=== PATIENT | male | born 1930 | race Caucasian/White ===

== ENCOUNTER 2016-10-07 07:23 | Day surgery (SDC) | payer BC ==
[2016-10-04 12:06] LABS: BASOPHILS 0.3 %; BASOPHILS ABSOLUTE 0.02 10/3/uL (0.0-0.16); EOSINOPHILS 1.7 %; EOSINOPHILS ABSOLUTE 0.13 10/3/uL (0.0-0.53); HEMATOCRIT 39.2 % (40.0-51.0); HEMOGLOBIN 12.8 g/dL (13.6-17.8); IMMATURE GRANULOCYTES 0.1 %; IMMATURE GRANULOCYTES ABSOLUTE 0.01 10/3/uL (0.0-0.11); LYMPHOCYTES 19.6 %; LYMPHOCYTES ABSOLUTE 1.54 10/3/uL (0.67-4.30); MANUAL DIFF NO %; MEAN CORPUS HGB CONC 32.7 g/dL (32.0-36.0); MEAN PLATELET VOLUME 12.4 fL (9.2-13.0); MONOCYTES 6.6 %; MONOCYTES ABSOLUTE 0.52 10/3/uL (0.21-1.20); NEUTROPHILS 71.7 %; NEUTROPHILS ABSOLUTE 5.65 10/3/uL (2.02-8.40); PLATELET COUNT 180 10/3/uL (150-400); RBC DISTRIBUTION WIDTH 13.9 % (12.0-16.0); RED CELL COUNT 4.26 10/6/uL (4.7-6.1); WHITE BLOOD CELLS 7.9 10/3/uL (4.5-10.5)
[2016-10-04 12:22] LABS: ALBUMIN 3.7 G/DL (3.5-5.0); ALKALINE PHOSPHATASE 91 U/L (45-117); CALCIUM, SERUM 8.9 MG/DL (8.5-10.4); CHLORIDE, SERUM 105 MMOL/L (96-112); CREATININE 1.17 MG/DL (0.70-1.30); GFR AFRICAN AMERICAN 66 ML/MIN (>=60); GFR NON AFRICAN AMERICAN 57 ML/MIN (>=60); GLOBULIN 3.6 G/DL (2.5-4.1); GLUCOSE, SERUM 131 MG/DL (60-99); POTASSIUM, SERUM 4.4 MMOL/L (3.5-5.3); SGOT(AST) 15 U/L (5-40); SGPT(ALT) 12 U/L (5-65); SODIUM, SERUM 142 MMOL/L (135-148); TOTAL BILIRUBIN 0.5 MG/DL (0-1.2); TOTAL PROTEIN 7.3 G/DL (6.0-8.5)
[2016-10-04 12:23] LABS: BUN (BLOOD UREA NITROGEN) 23 MG/DL (6-23); CO2 (CARBON DIOXIDE) 29 MMOL/L (24-34)
--- NOTE | ~2016-10-07 | OP ---
Record Of Operation [facility] [address] [place]. [address] NAME: CHRIS BROWN : 34 STATUS : [facility]#: [id number] AGE: 86 ADM/REG DATE : 10/07/16 MR#: [id number] REPORT SERV DATE: 10/09/16 DICTATED BY: PHILIPPE KEENAN DATE: 10/09/16 REPORT STATUS : Draft TRANSCRIBED BY: MODL DATE: 10/09/16 DATE OF PROCEDURE: 10/07/2016 PREOPERATIVE DIAGNOSES: 1. Chronic nausea and vomiting. 2. Abnormal appendix on CT scan consistent with a chronic tip appendicitis. POSTOPERATIVE DIAGNOSES: 1. Chronic nausea and vomiting. 2. Abnormal appendix on CT scan consistent with a chronic tip appendicitis. PROCEDURE PERFORMED: Diagnostic laparoscopy and laparoscopic appendectomy. ANESTHESIA: General. ESTIMATED BLOOD LOSS: 5 mL. SPECIMEN REMOVED: One appendix. BRIEF HISTORY: Mr. Brown is an 86-year-old gentleman with multiple medical problems. He has had a longstanding history of nausea and vomiting. He has had an extensive GI workup including endoscopy as well as CT scans. He has had over two separate CT scans now that demonstrated an abnormality at the tip of the appendix, and these have both been read out as tip appendicitis. He has also had a gallbladder workup including a HIDA scan that was normal, and the HIDA scan did not reproduce his symptoms. His ejection fraction was calculated at 70+ percentile range. Since no other etiology for his nausea or vomiting was identified and the patient reportedly improved while he was taking antibiotics, it was thought that the appendicitis could be the etiology of his nausea and he presents for appendectomy. FINDINGS AT THE TIME OF PROCEDURE: Mr. Brown's appendix was slightly dilated and red at the tip. It was not severely infected. Examination of remainder of his terminal small bowel, colon, gallbladder, and stomach revealed no other obvious external sources or pathology and no signs of inflammation. DETAILS: Following informed consent, the patient was taken to the operative suite, and after successful induction of general endotracheal anesthesia, his abdomen was prepped and draped in usual sterile fashion. An umbilical skin incision was made and skin hooks elevated the skin edges and anterior rectus fascia. There was a small umbilical hernia defect and we are able to use this as a portal of entry into the abdominal cavity. A non-bladed 10/12 trocar was inserted through this orifice, connected insufflation tubing, and the peritoneal cavity was insufflated with carbon dioxide to a resting pressure of 15 mmHg. A 5-mm laparoscope was then introduced. The underlying bowel and vascular structures were carefully inspected and noted to be free from injury from initial trocar insertion. Two additional 5-mm trocars were placed in lower midline under direct visualization without incident. The patient was positioned in Trendelenburg. The appendix was identified. The tip was slightly Record Of Operation [address] [place]. [address] NAME: CHRIS BROWN : 34 STATUS : [facility] PAT#: [id number] AGE: 86 ADM/REG DATE : 10/07/16 MR#: [id number] REPORT SERV DATE: 10/09/16 DICTATED BY: PHILIPPE KEENAN DATE: 10/09/16 REPORT STATUS : Draft TRANSCRIBED BY: BIA DATE: 10/09/16 erythematous and dilated, but there was no abraham severe inflammation noted. A window was created through the mesoappendix at the appendiceal base and a blue load Endo AMILCAR stapler was fired across the appendiceal base. A vascular load was fired across the mesoappendix completely freeing the appendix from all its attachments. We placed additional hemoclips on the staple lines. The patient is on chronic anticoagulation, and we wanted to ensure postop hemostasis. The appendix was then placed inside endoscopic retrieval pouch, removed through the umbilical trocar site intact and without incident. We copiously irrigated the right lower quadrant, inspected the staple lines, and hemostasis was found to be secured. We ran the terminal ilium and saw no signs of Meckel diverticulum or inflammation and no obvious signs of obstructive process. No other pathology was identified. The two 5 mm trocars were removed. Their sites were observed. Hemostasis was noted to be secured. Peritoneal cavity was desufflated. Laparoscope was removed. Fascia at the 12 mm trocar site was approximated with #0 Vicryl sutures. The skin edges of the remaining incisions approximated using 4-0 Monocryl subcuticular suture and Dermabond placed. At the completion of the case, all sponge needle counts were correct. The patient was extubated and transferred to recovery room in satisfactory condition having suffered no apparent perioperative complications. BENJI/BIA Philippe Keenan M.D. / [id number] CC: Lucy Dao M.D.
[~2016-10-07 07:23] MED LIST: AMARYL1 MG PO; ASAB PO; C1 PO; COUMADIN3 MG; ELIQUIS 5 MG TAB5 MG PO; FLOMAX4 PO; FLONASE NAS; FORTAMET500 MG PO; JANTOVEN1 MG; JANTOVEN1 MG PO; JANTOVEN3 MG; JANTOVEN3 MG PO; JANTOVEN5 MG PO; LOP25 PO; MEVACOR10 MG PO; MEVACOR40 MG PO; NITROMIST400 MCG SL; NITROSTAT0.4 MG SL; NORV5 PO; PLAVIX PO; PRILO PO; PROTONIX PO; SUCR PO
[2016-10-07 08:05] LABS: INTERNATIONAL NORMAL RATI 1.3 UNITS (-); PROTIME (NOT ORD) 16.5 SEC (12.0-14.5)
== END 2016-10-07 15:30 | disposition home or self-care (01) ==
LOC: SDC 07:23
PROVIDERS: Surgery
PROC: 0DTJ4ZZ Resection of Appendix, Percutaneous Endoscopic Approach (ICD-10-PCS; principal; 2016-10-07 09:30)
DX: D12.1 Benign neoplasm of appendix (principal); E11.9 Type 2 diabetes mellitus without complications; I48.91 Unspecified atrial fibrillation; Z88.5 Allergy status to narcotic agent; Z88.8 Allergy status to other drugs, medicaments and biological substances; I10 Essential (primary) hypertension; J44.9 Chronic obstructive pulmonary disease, unspecified; E78.5 Hyperlipidemia, unspecified; K21.9 Gastro-esophageal reflux disease without esophagitis; M19.90 Unspecified osteoarthritis, unspecified site; Z87.891 Personal history of nicotine dependence
CPT/HCPCS: 80053; 82962; 85025; 85610; 88304; 93005; J0690; J2370; J2405; J2710; J3010